=== PATIENT | female | born 1950 | race Caucasian/White ===

== ENCOUNTER 2020-10-18 13:29 | Emergency (ER) | payer MEDICAID ==
[~2020-10-18] VITALS: Ht 149.9 cm; Wt 86.6 kg
[2020-10-18 14:14] LABS: HEMATOCRIT 41.5 % (37.0-47.0); MCH 28.4 pg (26.0-34.0); MCHC 31.4 g/dL (28.0-37.0); MCV 90.5 fL (80.0-100.0); MPV 9.4 fl. (7.2-11.1); NUCLEATED RBCS 0 /100WBC; PLATELET COUNT* 338 thou/uL (150-400); RBC 4.58 mil/uL (4.20-5.00)
[2020-10-18 14:42] LABS: CREATININE 1.4 mg/dL (0.6-1.3); POTASSIUM 3.8 mmol/L (3.5-5.1)
[2020-10-18 14:46] LABS: TOTAL BILIRUBIN 0.7 mg/dL (<0.1-1.0); TOTAL PROTEIN 7.4 g/dL (6.4-8.2)
[2020-10-18 14:53] LABS: ABSOLUTE LYMPHOCYTES 0.7 thou/uL (0.8-5.3); ABSOLUTE MONOCYTES 2.6 thou/uL (0.0-1.2); ABSOLUTE NEUTROPHILS 29.7 thou/uL (1.6-8.1); PLATELET ESTIMATE ADEQUATE
[2020-10-18 14:57] LABS: ALBUMIN 2.2 g/dL (3.4-5.0)
--- NOTE | 2020-10-18 15:27 | EKG ---
[place] [address] ELECTROCARDIOGRAM REPORT Name: CHAMBERSRHONA HECK Alfredo Room: [facility]#: [id number] Admission: 10/18/20 Attend Phys: Discharge: Date of : 54 Date of Service: 10/18/20 1414 Report #: [id number] THIS REPORT FOR: //name// [facility] ED Test Date: 2020-10-18 Test Time: 14:14:57 Pat Name: RHONA CHAMBERS Department: Room: Gender: F District Director: : [id number] Requested By: Jose Cruz Guaman Order Number: [id number] MD: Prabhu Del Toro Measurements Intervals Imogene Rate: 100 P: 51 IN: 131 QRS: -24 QRSD: 83 T: 45 QT: 360 QTc: 465 Interpretive Statements Sinus tachycardia Abnormal R-wave progression, late transition Inferior infarct, old No previous ECG available for comparison Electronically Signed On 10-18-2020 15:27:00 CDT by Prabhu Del Toro [email or web address] <ELECTRONICALLY SIGNED> By: Prabhu Del Toro MD, [facility] 10/18/20 1527 1414 141 Prabhu Del Toro MD, [facility] /EPI
[2020-10-18] MEDS ORDERED: PERCOCET PO (16:03)
[2020-10-18] MEDS ORDERED: ZOFRAN ODT4 MG DISSOLVE (16:03)
[2020-10-18 16:17] VITALS: BP 193/67
== END 2020-10-18 16:18 | disposition home or self-care (01) ==
LOC: M.ERS 13:29
PROVIDERS: Family Medicine
DX: K59.00 Constipation, unspecified (principal); Z20.822 Contact with and (suspected) exposure to COVID-19; E11.9 Type 2 diabetes mellitus without complications; Z88.5 Allergy status to narcotic agent; Z95.5 Presence of coronary angioplasty implant and graft